=== PATIENT | female | born 1970 | race Caucasian/White ===

== ENCOUNTER 2019-05-11 18:44 | Emergency (ER) | payer OTHER ==
[~2019-05-11] VITALS: Ht 180.3 cm; Wt 87.0 kg
[2019-05-11 19:00] VITALS: BP 113/71
== END 2019-05-11 21:45 | disposition left against medical advice (07) ==
LOC: ER 18:44
DX: R07.89 Other chest pain (principal); Z53.21 Procedure and treatment not carried out due to patient leaving prior to being seen by health care provider
CPT/HCPCS: 93005